=== PATIENT | male | born 1950 | race Caucasian/White ===

== ENCOUNTER 2018-03-14 21:19 | Emergency (ER) | payer OTHER, BC ==
[2018-03-14] MEDS ORDERED: diphenhydrAMINE 25 MG CAP PO ONE (22:34)
--- NOTE | 2018-03-14 22:38 | EDPHY ---
H & P Stated Complaint: BOTTOM LIP SWOLLEN X 1 HR Time Seen by Provider: 03/14/18 22:19 HPI/ROS: HPI The patient presents with lower lip swelling which has been present since about 9:00 p.m. Tonight which began in the left lower corner of his lip and then spread throughout his entire lower lip. He does not have any tongue swelling, difficulty swallowing, drooling, vomiting, shortness of breath. He does not have any rash on his body. He has been taking lisinopril for approximately 15 years. He takes Tylenol occasionally but nothing else [id number] and no new medications.. REVIEW OF SYSTEMS 10 systems were reviewed and negative with the exception of the elements mentioned in the history of present illness. PMHx: CAD, hypertension, history of TIA Soc Hx: Visiting family from [place] PHYSICAL General Appearance: Alert, no distress Eyes: Pupils equal and round no pallor or injection ENT, Mouth: Lower lip is diffusely edematous and slightly erythematous, tongue and posterior pharynx appear normal, Mucous membranes moist Respiratory: There are no retractions, lungs are clear to auscultation Cardiovascular: Regular rate and rhythm Gastrointestinal: Abdomen is soft and non-tender, no masses, bowel sounds normal Neurological: A&O, moves all extremities Skin: Warm and dry, no rashes Musculoskeletal: Neck is supple non tender Extremities: symmetrical, full range of motion Psychiatric: Patient is oriented X 3, there is no agitation Source: Patient Exam Limitations: No limitations - Personal History Current Tetanus Diphtheria and Acellular Pertussis (TDAP): Yes - Medical/Surgical History Hx Asthma: No Hx Chronic Respiratory Disease: No Hx Diabetes: Yes Hx Cardiac Disease: Yes Hx Renal Disease: No Hx Cirrhosis: No Hx Alcoholism: No Hx HIV/AIDS: No Hx Splenectomy or Spleen Trauma: No Other PMH: 8 CARDIAC STENTS, MINOR STROKE SYMPTOMS FROM MEDICATION, NOSE SX - Social History Smoking Status: Former smoker Constitutional: Initial Vital Signs Temperature (C) 36.9 C 03/14/18 21:26 Heart Rate 100 03/14/18 21:26 Respiratory Rate 18 03/14/18 21:26 Blood Pressure 170/90 H 03/14/18 21:26 O2 Sat (%) 94 03/14/18 21:26 O2 Delivery Mode Room Air Allergies/Adverse Reactions: benazepril [From Lotensin] Allergy (Verified 03/14/18 21:25) cephalexin [From Keflex] Allergy (Verified 03/14/18 21:25) pravastatin [From Pravachol] Allergy (Verified 03/14/18 21:25) sulfamethoxazole Allergy (Verified 03/14/18 21:25) Home Medications: Medication Instructions Recorded ALBUTEROL SULFATE 03/14/18 Amlodipine Besylate 03/14/18 Aspirin 81mg (*) 03/14/18 Atorvastatin Calcium 03/14/18 Clopidogrel 03/14/18 Fluticasone Furoate 03/14/18 Lisinopril 03/14/18 Metformin 1000 mg 03/14/18 Nitroglycerin 03/14/18 Torsemide 03/14/18 Medical Decision Making Differential Diagnosis: 67-year-old male with 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 Tonight. No other symptoms except for lower lip swelling. There is no sign of airway involvement at this time. Plan for Benadryl and observe here in the emergency department. 10:55 p.m.- Patient now has mild upper lip swelling as well. I have ordered famotidine and Solu-Medrol. 1:30 a.m.- Lip swelling has improved in the lower lip and is beginning to improve in the upper lip. The patient feels better. He does not have any oral mucosa involvement be on the lips. I will discharge the patient home and have instructed him to stop taking his HUEY-inhibitor, call his primary care doctor when he can. - Data Points Medications Given: Discontinued Medications Diphenhydramine HCl (Benadryl) 25 mg PO EDNOW ONE Stop: 03/14/18 22:35 Last Admin: 03/14/18 22:40 Dose: 25 mg Famotidine/Sodium Chloride (Pepcid 20 Mg (Premix)) 50 mls @ 200 mls/hr IV EDNOW ONE Stop: 03/14/18 23:08 Last Admin: 03/14/18 23:40 Dose: 50 mls Methylprednisolone Sodium Succinate (Solu-Medrol) 125 mg IVP EDNOW ONE Stop: 03/14/18 22:55 Last Admin: 03/14/18 23:40 Dose: 125 mg Departure - Departure Disposition: Home, Routine, Self-Care Clinical Impression: Angioedema Condition: Good Instructions: Angioedema (ED) Additional Instructions: Please return if your worse in any way. You can take Benadryl 25 mg every 6 hr until the swelling improves. You cannot take lisinopril anymore. You should contact your doctor on Friday to see if you can be on a different blood pressure medication. Referrals: AMY [email or web address] [Other] - As per Instructions
[2018-03-14] MEDS ORDERED: FAMOTIDINE 20 MG/NACL 50 ML IV ONE (22:54)
[2018-03-14] MEDS ORDERED: methylPREDNISolone SOD SUCC 125 MG/2 ML VIAL IVP ONE (22:54)
[2018-03-15 01:45] VITALS: BP 123/73
== END 2018-03-15 01:44 | disposition home or self-care (01) ==
DX: T78.3XXA Angioneurotic edema, initial encounter (principal); I25.10 Atherosclerotic heart disease of native coronary artery without angina pectoris; I10 Essential (primary) hypertension; Z86.73 Personal history of transient ischemic attack (TIA), and cerebral infarction without residual deficits; Z95.5 Presence of coronary angioplasty implant and graft
CPT/HCPCS: 96365; 96375; 99284; J2930